=== PATIENT | female | born 1990 | race Caucasian/White ===

== ENCOUNTER 2019-04-10 19:28 | Emergency (ER) | payer BC ==
--- NOTE | 2019-04-10 19:52 | EDM.PDOC ---
ED HPI GENERAL MEDICAL PROBLEM - General Chief Complaint: Lower Extremity Injury/Pain Stated Complaint: PAIN IN LEFT LEG Time Seen by Provider: 04/10/19 19:52 Source of Information: Reports: Patient - History of Present Illness INITIAL COMMENTS - FREE TEXT/NARRATIVE: HISTORY AND PHYSICAL: History of present illness: [Patient presents with pain in the left thigh that appears to be muscular in nature however she is concerned about DVT she has no swelling or redness however d-dimer is positive hence get ultrasound of the lower extremity which was negative patient has no other symptoms such as fever nausea vomiting chills sweats no chest pain shortness breath headache dizziness palpitation no bowel or urine symptoms ] Review of systems: As per history of present illness and below otherwise all systems reviewed and negative. Past medical history: As per history of present illness and as reviewed below otherwise noncontributory. Surgical history: As per history of present illness and as reviewed below otherwise noncontributory. Social history: No reported history of drug or alcohol abuse. Family history: As per history of present illness and as reviewed below otherwise noncontributory. Physical exam: HEENT: Atraumatic, normocephalic, pupils reactive, negative for conjunctival pallor or scleral icterus, mucous membranes moist, throat clear, neck supple, nontender, trachea midline. Lungs: Clear to auscultation, breath sounds equal bilaterally, chest nontender. Heart: S1S2, regular, negative for clicks, rubs, or JVD. Abdomen: Soft, nondistended, nontender. Negative for masses or hepatosplenomegaly. Negative for costovertebral tenderness. Pelvis: Stable nontender. Genitourinary: Deferred. Rectal: Deferred. Extremities: Atraumatic, negative for cords or calf pain. Neurovascular unremarkable. Neuro: Awake, alert, oriented. Cranial nerves II through XII unremarkable. Cerebellum unremarkable. Motor and sensory unremarkable throughout. Exam nonfocal. Diagnostics: [CBC d-dimer Ultrasounld lower extremity Therapeutics: [ rest ice ibuprofen ] Impression: [ muscle spasm ] Definitive disposition and diagnosis as appropriate pending reevaluation and review of above. Left Leg Pain Score (Numeric/FACES): 5 - Related Data Allergies Allergy/AdvReac Type Severity Reaction Status Date / Time No Known Allergies Allergy Verified 04/10/19 19:36 Home Meds: Home Meds . 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: Ectopic , Endometriosis Musculoskeletal History: Reports: Fracture Neurological History: Reports: Seizure, Other (See Below) Other Neuro History: seizure of unknown origin (2007), none since......hx of motion sickness Psychiatric History: Reports: None Endocrine/Metabolic History: Reports: None Hematologic History: Reports: Blood Transfusion(s) Immunologic History: Reports: None Oncologic (Cancer) History: Reports: None Dermatologic History: Reports: None - Past Surgical History Head Surgeries/Procedures: Reports: None HEENT Surgical History: Reports: None Cardiovascular Surgical History: Reports: None Respiratory Surgical History: Reports: None GI Surgical History: Reports: None Female Surgical History: Reports: Endometrial Ablation Endocrine Surgical History: Reports: None Musculoskeletal Surgical History: Reports: ORIF Other Musculoskeletal Surgeries/Procedures:: left ankle Oncologic Surgical History: Reports: None Dermatological Surgical History: Reports: None Social & Family History - Family History Family Medical History: Noncontributory - Tobacco Use Smoking Status *Q: Never Smoker Review of Systems - Review of Systems Review Of Systems: See Below ED EXAM, GENERAL - Physical Exam Exam: See Below Course - Vital Signs Last Recorded V/S: Last Vital Signs Temp 97.7 F 04/10/19 19:37 Pulse 87 04/10/19 19:37 Resp 16 04/10/19 19:37 BP 145/94 H 04/10/19 19:37 Pulse Ox 100 04/10/19 19:37 - Orders/Labs/Meds Labs: Laboratory Tests 04/10/19 04/10/19 Range/Units 19:56 19:56 WBC 9.25 (4.0-11.0) K/uL RBC 4.45 (4.30-5.90) M/uL Hgb 13.4 (12.0-16.0) g/dL Hct 39.7 (36.0-46.0) % MCV 89.2 (80.0-98.0) fL MCH 30.1 (27.0-32.0) pg MCHC 33.8 (31.0-37.0) g/dL RDW Std Deviation 40.6 (28.0-62.0) fl RDW Coeff of Orion 13 (11.0-15.0) % Plt Count 333 (150-400) K/uL MPV 9.30 (7.40-12.00) fL Neut % (Auto) 67.7 (48.0-80.0) % Lymph % (Auto) 22.1 (16.0-40.0) % [place] % (Auto) 7.4 (0.0-15.0) % Eos % (Auto) 2.4 (0.0-7.0) % Baso % (Auto) 0.4 (0.0-1.5) % Neut # (Auto) 6.3 H (1.4-5.7) K/uL Lymph # (Auto) 2.0 (0.6-2.4) K/uL [place] # (Auto) 0.7 (0.0-0.8) K/uL Eos # (Auto) 0.2 (0.0-0.7) K/uL Baso # (Auto) 0.0 (0.0-0.1) K/uL Nucleated RBC % 0.0 /100WBC Nucleated RBCs # 0 K/uL D-Dimer, Quantitative 1.10 H (0.0-0.50) mg/L FEU Departure - Departure Time of Disposition: 21:10 Disposition: Home, Self-Care 01 Condition: Good Clinical Impression: Muscle spasm - Discharge Information Referrals: PCP,None [Primary Care Provider] - Forms: ED Department Discharge Additional Instructions: Rest ice ibuprofen Return if symptoms persist or worsen Follow-up with primary care in 2 weeks sooner as needed [facility] - Primary Care [address] [place] [address] The following information is given to patients seen in the emergency department who are being discharged to home. This information is to outline your options for follow-up care. We provide all patients seen in our emergency department with a follow-up referral. The need for follow-up, as well as the timing and circumstances, are variable depending upon the specifics of your emergency department visit. If you don't have a primary care physician on staff, we will provide you with a referral. We always advise you to contact your personal physician following an emergency department visit to inform them of the circumstance of the visit and for follow-up with them and/or the need for any referrals to a consulting specialist. The emergency department will also refer you to a specialist when appropriate. This referral assures that you have the opportunity for follow-up care with a specialist. All of these measure are taken in an effort to provide you with optimal care, which includes your follow-up. Under all circumstances we always encourage you to contact your private physician who remains a resource for coordinating your care. When calling for follow-up care, please make the office aware that this follow-up is from your recent emergency room visit. If for any reason you are refused follow-up, please contact the [facility] emergency department at and asked to speak to the emergency department charge nurse.
[2019-04-10 20:09] VITALS: BP 145/94; PULSE 87
--- NOTE | 2019-04-10 21:08 | US ---
INDICATION: left leg pain, elevated d-dimer TECHNIQUE: Ultrasound venous duplex left lower extremity. COMPARISON: None. FINDINGS: The left common femoral, superficial femoral, deep femoral, popliteal, posterior tibial, and greater saphenous veins are fully compressible normal waveforms. IMPRESSION: Normal ultrasound of the left lower extremity veins. Dictated by: Alex Lyons MD @ 04/10/2019 21:07:40 (Electronically Signed)
== END 2019-04-10 21:22 | disposition home or self-care (01) ==
LOC: MW.ED 19:28
DX: M62.838 Other muscle spasm (principal)
CPT/HCPCS: 36415; 85025; 85379; 93971-26-LT; 93971-LT; 99284-25

== ENCOUNTER 2019-07-16 14:43 | Emergency (ER) | payer BC ==
[2019-07-16 15:18] VITALS: BP 151/75; PULSE 85
--- NOTE | 2019-07-16 15:39 | EDM.PDOC ---
ED HPI GENERAL MEDICAL PROBLEM - General Chief Complaint: Chest Pain Stated Complaint: CHEST PAIN Time Seen by Provider: 07/16/19 15:13 Source of Information: Reports: Patient History Limitations: Reports: No Limitations - History of Present Illness INITIAL COMMENTS - FREE TEXT/NARRATIVE: HISTORY AND PHYSICAL: History of present illness: Patient is a 29-year-old female who presents to the emergency room today with complaints of epigastric pain. She states she had eaten a bagel with multiple toppings on it and shortly after developed epigastric pain which was similar to heartburn. She has some mild nausea associated with it. Patient denies any fever, chills, headache, change in vision, syncope or near syncope. Denies any neck pain, back pain, shortness of breath or cough. Denies any vomiting, diarrhea, constipation or dysuria. Has not noted any blood in urine or stool. Patient has been eating and drinking appropriately. Patient has low to no risk factors of heart disease. She states she is otherwise healthy. Review of systems: As per history of present illness and below otherwise all systems reviewed and negative. Past medical history: As per history of present illness and as reviewed below otherwise noncontributory. Surgical history: As per history of present illness and as reviewed below otherwise noncontributory. Social history: See social history for further information Family history: As per history of present illness and as reviewed below otherwise noncontributory. Physical exam: General: Well-developed and well-nourished 29-year-old female. Alert and oriented. Nontoxic-appearing and in no acute distress. HEENT: Atraumatic, normocephalic, pupils equal and reactive bilaterally, negative for conjunctival pallor or scleral icterus, mucous membranes moist, TMs normal bilaterally, throat clear, neck supple, nontender, trachea midline. No drooling or trismus noted. No meningeal signs. No hot potato voice noted. Lungs: Clear to auscultation, breath sounds equal bilaterally, chest nontender. Heart: S1S2, regular rate and rhythm without overt murmur Abdomen: Soft, nondistended, nontender. Negative for masses or hepatosplenomegaly. Negative for costovertebral tenderness. Skin: Intact, warm, dry. No lesions or rashes noted. Extremities: Atraumatic, moves all extremities per self without difficulty or deficits, negative for cords or calf pain. Neurovascular unremarkable. Neuro: Awake, alert, oriented. Cranial nerves II through XII unremarkable. Cerebellum unremarkable. Motor and sensory unremarkable throughout. Exam nonfocal. Notes: Diagnostics are unremarkable. Patient felt improvement with a GI cocktail. Supportive care measures were reviewed and discussed. Voices understanding and is agreeable to plan of care. Denies any further questions or concerns at this time. Diagnostics: CBC, BMP, EKG, CXR Therapeutics: GI cocktail Prescription: None Impression: Epigastric Pain Plan: 1. Today's lab work, EKG, and chest x-ray are normal. Bellflower diet over the next 24-48 hours; advance as tolerated. May want to start a once daily Pepcid or Prilosec to help with symptoms. 2. Tylenol and/or ibuprofen as needed for pain management. 3. Follow-up with primary care as we discussed. Return to the ED as needed and as discussed. Definitive disposition and diagnosis as appropriate pending reevaluation and review of above. Chest Pain Score (Numeric/FACES): 4 - Related Data Allergies Allergy/AdvReac Type Severity Reaction Status Date / Time No Known Allergies Allergy Verified 07/16/19 15:18 Home Meds: Home Meds . 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 , Endometriosis Musculoskeletal History: Reports: Fracture Neurological History: Reports: Seizure, Other (See Below) Other Neuro History: seizure of unknown origin (2007), none since......hx of motion sickness Psychiatric History: Reports: None Endocrine/Metabolic History: Reports: None Hematologic History: Reports: Blood Transfusion(s) Immunologic History: Reports: None Oncologic (Cancer) History: Reports: None Dermatologic History: Reports: None - Past Surgical History Head Surgeries/Procedures: Reports: None HEENT Surgical History: Reports: None Cardiovascular Surgical History: Reports: None Respiratory Surgical History: Reports: None GI Surgical History: Reports: None Female Surgical History: Reports: Endometrial Ablation Endocrine Surgical History: Reports: None Neurological Surgical History: Reports: None Musculoskeletal Surgical History: Reports: ORIF Other Musculoskeletal Surgeries/Procedures:: left ankle Oncologic Surgical History: Reports: None Dermatological Surgical History: Reports: None Social & Family History - Family History Family Medical History: Noncontributory - Tobacco Use Smoking Status *Q: Current Every Day Smoker Years of Tobacco use: 2 Packs/Tins Daily: 1 - Caffeine Use Caffeine Use: Reports: None - Recreational Drug Use Recreational Drug Use: No ED ROS GENERAL - Review of Systems Review Of Systems: Comprehensive ROS is negative, except as noted in HPI. ED EXAM, GENERAL - Physical Exam Exam: See Below (See dictation) Course - Vital Signs Last Recorded V/S: Last Vital Signs Temp 97.9 F 07/16/19 15:10 Pulse 85 07/16/19 15:10 Resp 18 07/16/19 15:10 BP 151/75 H 07/16/19 15:10 Pulse Ox 97 07/16/19 15:10 - Orders/Labs/Meds Orders: Active Orders 24 hr Category Date Time Status EKG Documentation Completion [RC] STAT Care 07/16/19 14:44 Active Labs: Laboratory Tests 07/16/19 07/16/19 Range/Units 15:49 15:49 WBC 9.03 (4.0-11.0) K/uL RBC 4.47 (4.30-5.90) M/uL Hgb 13.5 (12.0-16.0) g/dL Hct 40.0 (36.0-46.0) % MCV 89.5 (80.0-98.0) fL MCH 30.2 (27.0-32.0) pg MCHC 33.8 (31.0-37.0) g/dL RDW Std Deviation 41.1 (28.0-62.0) fl RDW Coeff of Orion 13 (11.0-15.0) % Plt Count 338 (150-400) K/uL MPV 9.10 (7.40-12.00) fL Neut % (Auto) 72.3 (48.0-80.0) % Lymph % (Auto) 16.8 (16.0-40.0) % [place] % (Auto) 8.5 (0.0-15.0) % Eos % (Auto) 1.8 (0.0-7.0) % Baso % (Auto) 0.6 (0.0-1.5) % Neut # (Auto) 6.5 H (1.4-5.7) K/uL Lymph # (Auto) 1.5 (0.6-2.4) K/uL [place] # (Auto) 0.8 (0.0-0.8) K/uL Eos # (Auto) 0.2 (0.0-0.7) K/uL Baso # (Auto) 0.1 (0.0-0.1) K/uL Nucleated RBC % 0.0 /100WBC Nucleated RBCs # 0 K/uL Sodium 139 (136-145) mmol/L Potassium 3.8 (3.5-5.1) mmol/L Chloride 102 (98-107) mmol/L Carbon Dioxide 25.7 (21.0-32.0) mmol/L BUN 14 (7.0-18.0) mg/dL Creatinine 1.0 (0.6-1.0) mg/dL Est Cr Clr Drug Dosing 64.47 mL/min Estimated GFR (MDRD) > 60.0 ml/min Glucose 98 (74-106) mg/dL Calcium 8.6 (8.5-10.1) mg/dL Meds: Medications Discontinued Medications Generic Name Dose Route Start Last Admin Trade Name Freq PRN Reason Stop Dose Admin Al Hydroxide/Mg Hydroxide 15 0 ml 07/16/19 15:44 ml/ Metoclopramide HCl 5 mg/ PO 07/16/19 15:45 Lidocaine HCl 5 ml ONETIME ONE Departure - Departure Time of Disposition: 16:01 Disposition: Home, Self-Care 01 Clinical Impression: Epigastric pain Instructions: Gastroesophageal Reflux Disease, Adult, [id number] Referrals: PCP,None [Primary Care Provider] - Forms: ED Department Discharge Additional Instructions: The following information is given to patients seen in the emergency department who are being discharged to home. This information is to outline your options for follow-up care. We provide all patients seen in our emergency department with a follow-up referral. The need for follow-up, as well as the timing and circumstances, are variable depending upon the specifics of your emergency department visit. If you don't have a primary care physician on staff, we will provide you with a referral. We always advise you to contact your personal physician following an emergency department visit to inform them of the circumstance of the visit and for follow-up with them and/or the need for any referrals to a consulting specialist. The emergency department will also refer you to a specialist when appropriate. This referral assures that you have the opportunity for follow-up care with a specialist. All of these measure are taken in an effort to provide you with optimal care, which includes your follow-up. Under all circumstances we always encourage you to contact your private physician who remains a resource for coordinating your care. When calling for follow-up care, please make the office aware that this follow-up is from your recent emergency room visit. If for any reason you are refused follow-up, please contact the [facility] Emergency Department at and asked to speak to the emergency department charge nurse. [facility] Primary Care [address] [place] [address] [place] [address] 1. Today's lab work, EKG, and chest x-ray are normal. [place] diet over the next 24-48 hours; advance as tolerated. May want to start a once daily Pepcid or Prilosec to help with symptoms. 2. Tylenol and/or ibuprofen as needed for pain management. 3. Follow-up with primary care as we discussed. Return to the ED as needed and as discussed. Sepsis Event Note - Evaluation Sepsis Screening Result: No Definite Risk - Focused Exam Vital Signs: Vital Signs Temp Pulse Resp BP Pulse Ox 07/16/19 15:10 97.9 F 85 18 151/75 H 97 Date Exam was Performed: 07/16/19 Time Exam was Performed: 16:23 - My Orders Last 24 Hours: My Active Orders 07/16/19 14:44 EKG Documentation Completion [RC] STAT - Assessment/Plan Last 24 Hours: My Active Orders 07/16/19 14:44 EKG Documentation Completion [RC] STAT
[2019-07-16] MEDS ORDERED: Alum Hydrox/Mag Hydrox/Simeth 15 ML, Metoclopramide 5 MG, Lidocaine 2% 5 ML PO ONE ×3 (15:44)
--- NOTE | 2019-07-16 15:54 | CR ---
Chest: 2 views of the chest were obtained. Comparison: No previous chest x-ray. Heart size and mediastinum are normal. Lungs are clear with no acute parenchymal change. Bony structures are unremarkable. Impression: 1. Nothing acute is seen on 2 view chest x-ray. Diagnostic code #1 This report was dictated in [place] Standard Time
[2019-07-16 16:08] LABS: BLOOD UREA NITROGEN,BUN 14 mg/dL (7.0-18.0); CARBON DIOXIDE,CO2 25.7 mmol/L (21.0-32.0); CHLORIDE,CL 102 mmol/L (98-107); GLUCOSE RANDOM 98 mg/dL (74-106); POTASSIUM,K 3.8 mmol/L (3.5-5.1); SODIUM,NA 139 mmol/L (136-145)
== END 2019-07-16 16:29 | disposition home or self-care (01) ==
LOC: MW.ED 14:43
DX: R10.13 Epigastric pain (principal); F17.210 Nicotine dependence, cigarettes, uncomplicated
CPT/HCPCS: 36415; 71046; 71046-26; 80048; 85025; 93005; 99283; 99284-25

== ENCOUNTER 2020-05-22 05:11 | Inpatient (IN) | payer BC ==
[2020-05-22] MEDS ORDERED: Lidocaine 1% 50 ML MDV INJECT PRN (05:19)
[2020-05-22] MEDS ORDERED: Water For Irrigation,Sterile 1,000 ML Container IRR PRN (05:19)
[2020-05-22] MEDS ORDERED: Citric Acid/Sodium Citrate Solution 30 ML Cup PO ONE (05:19)
[2020-05-22] MEDS ORDERED: Butorphanol 1 MG/ML SDV IVPUSH PRN (05:19)
[2020-05-22] MEDS ORDERED: Ondansetron 4 MG/2 ML SDV IVPUSH PRN ×2 (05:19→09:15)
[2020-05-22] MEDS ORDERED: Misoprostol 200 MCG Tab PO PRN (05:19)
[2020-05-22] MEDS ORDERED: Nalbuphine 10 MG/1 ML Vial IVPUSH PRN (05:19)
[2020-05-22] MEDS ORDERED: Sodium Chloride 0.9% 10 ML SDV IV PRN (05:19)
[2020-05-22] MEDS ORDERED: Carboprost Tromethamine 250 MCG/1 ML Amp IM PRN (05:19)
[2020-05-22] MEDS ORDERED: ceFAZolin 2 GM in Premix Bag 1 BAG IV ONE (05:19)
[2020-05-22] MEDS ORDERED: Methylergonovine 0.2 MG/1 ML Amp IM PRN (05:19)
[2020-05-22] MEDS ORDERED: Tranexamic Acid 1,000 MG in Sodium Chloride 0.9% 100 ML IV PRN ×2 (05:19→09:15)
[2020-05-22] MEDS ORDERED: Oxytocin/0.9 % Sodium Chloride 30 UNIT/500 ML BAG IV SCH ×2 (05:30)
[2020-05-22] MEDS ORDERED: Lactated Ringers 1,000 ML IV SCH ×2 (05:30)
--- NOTE | 2020-05-22 07:32 | PCM.PREANE ---
Preanesthetic Assessment - Anesthesia/Transfusion/Family Hx Type of Anesthesia Reaction: Excessive Nausea/Vomiting Transfusion History: Prior Transfusion Without Reaction - Review of Systems General: No Symptoms Pulmonary: No Symptoms Cardiovascular: No Symptoms Gastrointestinal: No Symptoms Neurological: No Symptoms Other: Reports: None - Physical Assessment NPO Status Date: 05/21/20 NPO Status Time: 20:30 Vital Signs: reviewed and documented on intraoperative anesthesia record Height: 1.57 m Weight: 78.471 kg ASA Class: 2 Mental Status: Alert & Oriented x3 Airway Class: Mallampati = 2 Dentition: Reports: Normal Dentition Thyro-Mental Finger Breadths: 3 Mouth Opening Finger Breadths: 3 ROM/Head Extension: Full Lungs: Clear to Auscultation, Normal Respiratory Effort Cardiovascular: Regular Rate, Regular Rhythm - Lab Values: Laboratory Last Values WBC 15.49 K/uL (4.0-11.0) H 05/22/20 05:21 RBC 4.06 M/uL (4.30-5.90) L 05/22/20 05:21 Hgb 11.8 g/dL (12.0-16.0) L 05/22/20 05:21 Hct 36.0 % (36.0-46.0) 05/22/20 05:21 MCV 88.7 fL (80.0-98.0) 05/22/20 05:21 MCH 29.1 pg (27.0-32.0) 05/22/20 05:21 MCHC 32.8 g/dL (31.0-37.0) 05/22/20 05:21 RDW Std Deviation 44.4 fl (28.0-62.0) 05/22/20 05:21 RDW Coeff of Orion 14 % (11.0-15.0) 05/22/20 05:21 Plt Count 384 K/uL (150-400) 05/22/20 05:21 MPV 10.50 fL (7.40-12.00) 05/22/20 05:21 Nucleated RBC % 0.0 /100WBC 05/22/20 05:21 Nucleated RBCs # 0 K/uL 05/22/20 05:21 SARS-CoV-2 RNA (MARILYNN) NEGATIVE (NEGATIVE) 05/22/20 05:29 Blood Type A POSITIVE 05/22/20 05:21 Antibody Screen NEGATIVE 05/22/20 05:21 - Allergies Allergies/Adverse Reactions: Allergies Allergy/AdvReac Type Severity Reaction Status Date / Time No Known Allergies Allergy Verified 07/16/19 15:18 - Acknowledgements Anesthesia Type Planned: Spinal (The patient understands and accepts the risks and benefits with spinal anesthesia including failed spinal requiring conversion to general anesthetic. All questions answered. Anesthesia consent signed. 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 , Endometriosis, (39 weeks iup low amniotic fluid) Musculoskeletal History: Reports: Fracture Neurological History: Reports: Seizure, Other (See Below) Other Neuro History: seizure of unknown origin (2007), none since......hx of motion sickness Psychiatric History: Reports: None Endocrine/Metabolic History: Reports: Obesity/BMI 30+ Hematologic History: Reports: Blood Transfusion(s) Immunologic History: Reports: None Oncologic (Cancer) History: Reports: None Dermatologic History: Reports: None - Infectious Disease History Infectious Disease History: Reports: Chicken Pox - Past Surgical History Head Surgeries/Procedures: Reports: None HEENT Surgical History: Reports: Oral Surgery Cardiovascular Surgical History: Reports: None Respiratory Surgical History: Reports: None GI Surgical History: Reports: None Female Surgical History: Reports: Endometrial Ablation, Other (See Below) (diagnostic laparoscopy) Other Female Surgeries/Procedures: states had a laparotomy due to an ectopic 2009 Endocrine Surgical History: Reports: None Neurological Surgical History: Reports: None Musculoskeletal Surgical History: Reports: ORIF Other Musculoskeletal Surgeries/Procedures:: left ankle Oncologic Surgical History: Reports: None Dermatological Surgical History: Reports: None - SUBSTANCE USE Tobacco Use Status *Q: Former Tobacco User (quit 2005) Second Hand Smoke Exposure: No Days Per Week of Alcohol Use: 0 (during ) Recreational Drug Use History: No - HOME MEDS Home Medications: Home Meds Cholecalciferol (Vitamin D3) [Vitamin D3] 1 cap PO DAILY 04/06/20 [History] Fish Oil/Points-3 Fatty Acids [Fish Oil 1,000 MG] 1 cap PO DAILY 04/06/20 [History] Iron 18 mg PO BID 04/06/20 [History] Magnesium 1 tab PO DAILY 04/06/20 [History] Pnv No.95/Ferrous Fum/Folic AC [ Vitamin Tablet] 1 each PO DAILY 04/06/20 [History] Omeprazole Magnesium [Prilosec Otc] 1 tab PO DAILY 05/16/20 [History] - CURRENT (IN HOUSE) MEDS Current Meds: Current Medications Butorphanol Tartrate (Stadol) 1 mg IVPUSH Q1H PRN PRN Reason: Pain Carboprost Tromethamine (Hemabate Ds) 250 mcg IM ASDIRECTED PRN PRN Reason: Post Hemorrhage Oxytocin/Sodium Chloride (Oxytocin 30 Unit/500 Ml-Ns) 30 unit in 500 mls @ 250 mls/hr IV TITRATE [facility] Lactated Ringer's (Ringers, Lactated) 1,000 mls @ 150 mls/hr IV ASDIRECTED [facility] Last Admin: 05/22/20 07:28 Dose: 150 mls/hr Documented by: Oxytocin/Sodium Chloride (Oxytocin 30 Unit/500 Ml-Ns) 30 unit in 500 mls @ 999 mls/hr IV TITRATE [facility] Tranexamic Acid 1,000 mg/ (Sodium Chloride) 110 mls @ 660 mls/hr IV ONETIME PRN PRN Reason: Bleeding Lactated Ringer's (Ringers, Lactated) 1,000 mls @ 500 mls/hr IV BOLUS [facility] Lidocaine HCl (Xylocaine 1%) 50 ml INJECT ONETIME PRN PRN Reason: Laceration repair Methylergonovine Maleate (Methergine) 0.2 mg IM ASDIRECTED PRN PRN Reason: Post Hemorrhage Misoprostol (Cytotec) 200 mcg PO ONETIME PRN PRN Reason: Post Hemorrhage Nalbuphine HCl (Nubain) 10 mg IVPUSH Q1H PRN PRN Reason: Pain (severe 7-10) Ondansetron HCl (Zofran) 4 mg IVPUSH Q4H PRN PRN Reason: Nausea/Vomiting Sodium Chloride (Normal Saline) 10 ml IV ASDIRECTED PRN PRN Reason: IV Use Sterile Water (Sterile Water For Irrigation) 1,000 ml IRR ASDIRECTED PRN PRN Reason: delivery Discontinued Medications Citric Acid/Sodium Citrate (Bicitra Solution) 30 ml PO ONETIME ONE Stop: 05/22/20 05:20 Cefazolin Sodium/Dextrose 2 gm (/ Premix) 50 mls @ 100 mls/hr IV ONETIME ONE Stop: 05/22/20 05:48
[2020-05-22] MEDS ORDERED: ceFAZolin/Dextrose,Iso-Osmotic 2 GM/50 ML Duplex Bag IV ONE (07:33)
[2020-05-22] MEDS ORDERED: Morphine PF 10 MG/10 ML SDV ONE (07:33)
[2020-05-22] MEDS ORDERED: ePHEDrine 50 MG/ML SDV ONE (08:22)
[2020-05-22] MEDS ORDERED: Ondansetron 4 MG/2 ML SDV ONE ×2 (08:30→08:46)
[2020-05-22] MEDS ORDERED: Oxytocin 10 Units/1 ML SDV ONE (08:38)
[2020-05-22] MEDS ORDERED: Dexamethasone 4 MG/ML 5 ML MDV ONE (08:46)
[2020-05-22] MEDS ORDERED: Scopolamine 1.5 MG Transdermal Patch ONE (08:47)
[2020-05-22] MEDS ORDERED: Propofol 200 MG/20 ML SDV ONE (08:53)
[2020-05-22] MEDS ORDERED: Octyl 2-Cyanoacrylate 1 Tube ONE (08:53)
[2020-05-22] MEDS ORDERED: Acetaminophen/oxyCODONE 325-5 MG Tab PO PRN ×3 (09:00→09:15)
[2020-05-22] MEDS ORDERED: Acetaminophen/HYDROcodone 325-5 MG Tab PO PRN (09:00)
[2020-05-22] MEDS ORDERED: Naloxone 0.4 MG/ML Syringe IVPUSH PRN (09:00)
--- NOTE | 2020-05-22 09:04 | PCM.SN.2 ---
- Free Text/Narrative Note: Patient in sitting position. Spinal done with sterile technique. Back prepped with chlorhexidine. sterile draped used. 1% lidocaine 3 ml for skin infiltration. 25 gauge pencan needle +csf, no heme, no paresthesias. 1.4 ml of hyperbaric bupivacaine 0.75% and 0.25 duramorph given at 0809. patient tolerated procedure well, and was able to communicate throughout. one attempt.
[2020-05-22] MEDS ORDERED: Ketorolac 30 MG/ML SDV ONE (09:05)
--- NOTE | 2020-05-22 09:14 | PCM.OPNOTE ---
- General Post-Op/Procedure Note Date of Surgery/Procedure: 05/22/20 Operative Procedure(s): primary low transvserse Findings: liveborn female complete breech presentation. Normal pelvis Pre Op Diagnosis: 39 weeks breech presentation Post-Op Diagnosis: Same Anesthesia Technique: Spinal Primary Surgeon: Jennifer Mendez Anesthesia Provider: Elise Marino Pathology: none EBL in mLs: 300 Complications: None Known Condition: Good
[2020-05-22] MEDS ORDERED: Oxytocin/Lactated Ringers 30 UNIT/500 ML BAG IV SCH (09:15)
[2020-05-22] MEDS ORDERED: diphenhydrAMINE 50 MG/ML SDV IVPUSH PRN (09:15)
[2020-05-22] MEDS ORDERED: Ibuprofen 800 MG Tab PO PRN (09:15)
[2020-05-22] MEDS ORDERED: Lanolin 100% Cream 7 GM Tube TOP PRN (09:15)
[2020-05-22] MEDS ORDERED: Bisacodyl 10 MG Supp RECTAL PRN (09:15)
[2020-05-22] MEDS ORDERED: Oxytocin 10 Units/1 ML SDV IM PRN (09:15)
[2020-05-22] MEDS: Lactated Ringers 1,000 ML IV SCH ×2 (09:24→18:59)
--- NOTE | 2020-05-22 10:39 | PCM.POSTAN ---
POST ANESTHESIA ASSESSMENT - MENTAL STATUS Mental Status: Alert, Oriented - RESPIRATORY Respiratory Status: Respiratory Rate WNL, Airway Patent, O2 Saturation Stable - CARDIOVASCULAR CV Status: Pulse Rate WNL, Blood Pressure Stable - GASTROINTESTINAL GI Status: No Symptoms - PAIN Pain Score: 0 - POST OP HYDRATION Hydration Status: Adequate & Stable - OBSERVATIONS Free Text/Narrative:: Nausea is controlled. She has no complaints at this time. The patient tolerated the procedure well. There were no apparent anesthetic complications at this time. Discharge to floor per criteria.
--- NOTE | 2020-05-22 12:40 | OR ---
SURGEON: Jennifer Mendez M.D. DATE OF PROCEDURE: 05/22/2020 PREOPERATIVE DIAGNOSES: A 39-week gestation, breech presentation, IVF . POSTOPERATIVE DIAGNOSES: A 39-week gestation, breech presentation, IVF . PROCEDURE: Primary low-transverse section. PRIMARY SURGEON: Jennifer Mendez M.D. ANESTHESIA: Spinal. ESTIMATED BLOOD LOSS: 300 mL. FINDINGS: Liveborn female, scores 7 and 9, weighing 3040 g. Normal-appearing uterus, tubes, and ovaries. COMPLICATIONS: None known. DISPOSITION: Mother and baby are in LDR in good condition. BRIEF HISTORY: This is a 30-year-old female, G4, P0, presents at 39 weeks' gestation for primary delivery. Due to breech presentation, we had discussed external cephalic version. However, the amniotic fluid level remained between 5 and 8 during the time when version would be appropriate, and after extensive discussion with Leda and her , decision was made to proceed with a primary delivery if spontaneous cephalic presentation did not occur. I did confirm breech presentation prior to proceeding with the delivery. Risks of were discussed including bleeding; infection; injury to bowel, bladder, blood vessels, or other organs; risk of thromboembolic event; risk of anesthesia. Understanding all these risks, she does desire to proceed. DESCRIPTION OF PROCEDURE: With the patient in left tilt position, under adequate spinal analgesia, the abdomen was prepped with chlorhexidine and draped in the usual fashion for abdominal surgery. SCDs were in place. Rocha catheter had been placed. An appropriate time-out was held, and she had received 2 g of Ancef IV. After documentation of adequate analgesia, the prior cicatrix was excised with a scalpel, and the incision was carried through the subcutaneous tissue to the fascia, which was scored transversely in the midline. The fascial incision was extended laterally using curved Turner scissors. The fascia was elevated from the underlying rectus muscles using sharp and blunt dissection. The rectus muscles were in the midline. A finger was placed into the peritoneal cavity. There were no adhesions to the anterior abdominal wall. The incision was extended cephalad and caudad with sharp and blunt dissection, and the Marshall O C- section retractor was placed. The visceral peritoneum over the lower uterine segment was incised to develop an adequate bladder flap. A transverse curvilinear incision was made over the lower uterine segment using the scalpel. A finger was used to enter the amniotic cavity. Clear fluid was noted. The breech was delivered sacrum anterior with subsequent delivery of the 's shoulders and head without any difficulty or maneuvers. The infant was bulb suctioned by nose and mouth. After 1 minute, the cord was doubly clamped and cut. The infant was handed to Dr. Bustillo who was in attendance at delivery. The was a liveborn female, scores 7 and 9, weighing 3040 g. Cord blood was collected for cord ABGs as well as routine cord blood sampling. Pitocin was initiated after delivery of the infant to assist with delivery of the placenta, which was delivered by manual extraction. The uterus was cleaned with a dry laparotomy tape. The cervix was opened with ring forceps. The uterine incision was closed with a running lock suture of 0 Polysorb followed by an imbricating layer of 0 Polysorb. Despite Pitocin, the uterus remained quite boggy. Therefore, Methergine 0.2 mg IM was given, and after this, the uterus firmed up. The uterine incision was hemostatic. The Marshall retractor was removed, and the uterus was replaced into the abdominal cavity. The rectus muscle and peritoneum were loosely approximated in the midline after confirmation of complete hemostasis of the uterine incision, and the posterior aspect of the fascia was inspected, and areas of bleeding that were noted were cauterized. The fascial incision was closed with a running suture of 0 Polysorb. The skin was closed with a running subcuticular suture of 3-0 Monocryl followed by Dermabond. Final sponge, needle, and instrument counts were reported as correct. There were no known complications. The patient was transferred to Recovery in good condition. THERESA THORPE /[id number]
[2020-05-22] MEDS: Ketorolac 30 MG/ML SDV IVPUSH SCH ×3 (16:16→21:56)
[2020-05-22] MEDS: diphenhydrAMINE 50 MG/ML SDV IVPUSH PRN (21:56)
[2020-05-22] MEDS: Docusate Sodium 100 MG Cap PO SCH (21:56)
[2020-05-23] MEDS: Ketorolac 30 MG/ML SDV IVPUSH SCH ×2 (04:19→09:45)
[2020-05-23] MEDS: diphenhydrAMINE 50 MG/ML SDV IVPUSH PRN (04:20)
--- NOTE | 2020-05-23 06:50 | PCM.PNPP ---
- General Info Date of Service: 05/23/20 Subjective Update: 30yo P1 s/p primary for breech , Normal lochia Functional Status: Reports: Pain Controlled, Tolerating Diet, Ambulating, Urinating - Review of Systems General: Reports: No Symptoms HEENT: Reports: No Symptoms Pulmonary: Reports: No Symptoms Cardiovascular: Reports: No Symptoms Gastrointestinal: Reports: No Symptoms Genitourinary: Reports: No Symptoms Musculoskeletal: Reports: No Symptoms Skin: Reports: No Symptoms Neurological: Reports: No Symptoms Psychiatric: Reports: No Symptoms - General Info Date of Service: 05/23/20 - Patient Data Vital Signs - Most Recent: Last Vital Signs Temp 36.8 C 05/23/20 04:00 Pulse 70 05/23/20 05:00 Resp 16 05/23/20 05:00 BP 111/59 L 05/23/20 04:00 Pulse Ox 99 05/23/20 05:00 Weight - Most Recent: 78.471 kg I&O - Last 24 Hours: Intake & Output 05/22/20 05/22/20 05/23/20 14:59 22:59 06:59 Intake Total 1228 Output Total 30 600 2155 Balance -30 628 -2155 Lab Results - Last 24 Hours: Laboratory Results - last 24 hr 05/22/20 05/22/20 05/22/20 Range/Units 05:21 05:29 08:37 Cord ABG pH 7.229 (7.18-7.38) Cord ABG Base Excess -5 (-10--2) Cord VBG pH 7.296 (7.25-7.45) Cord VBG Base Excess -5 (-10--2) SARS-CoV-2 RNA (MARILYNN) NEGATIVE (NEGATIVE) Blood Type A POSITIVE Antibody Screen NEGATIVE Med Orders - Current: Current Medications Hydrocodone Bitart/Acetaminophen ([place] 325-5 Mg) 2 tab PO Q6H PRN PRN Reason: Pain (moderate 4-6) Bisacodyl (Dulcolax) 10 mg RECTAL ONETIME PRN PRN Reason: Constipation Diphenhydramine HCl (Benadryl) 25 mg IVPUSH Q4H PRN PRN Reason: Itching Stop: 05/23/20 09:01 Last Admin: 05/23/20 04:20 Dose: 25 mg Documented by: Diphenhydramine HCl (Benadryl) 25 mg IVPUSH Q6H PRN PRN Reason: Itching or Nausea Docusate Sodium (Colace) 100 mg PO BID [facility] Last Admin: 05/22/20 21:56 Dose: 100 mg Documented by: Emollient Ointment (Lansinoh Hpa) 0 gm TOP ASDIRECTED PRN PRN Reason: Sore Nipples Lactated Ringer's (Ringers, Lactated) 1,000 mls @ 125 mls/hr IV ASDIRECTED [facility] Last Admin: 05/22/20 18:59 Dose: 125 mls/hr Documented by: Oxytocin/Lactated Ringer's (Pitocin In Lr 30 Units/500 Ml) 30 unit in 500 mls @ 999 mls/hr IV TITRATE [facility]; Protocol Tranexamic Acid 1,000 mg/ (Sodium Chloride) 110 mls @ 660 mls/hr IV ONETIME PRN PRN Reason: Bleeding Ibuprofen (Motrin) 800 mg PO Q8H PRN PRN Reason: mild pain or fever Ketorolac Tromethamine (Toradol) 30 mg IVPUSH Q6H [facility] Stop: 05/23/20 09:16 Last Admin: 05/23/20 04:19 Dose: 30 mg Documented by: Naloxone HCl (Narcan) 0.1 mg IVPUSH ONETIME PRN PRN Reason: Respiratory Depression Stop: 05/23/20 09:01 Ondansetron HCl (Zofran) 4 mg IVPUSH Q4H PRN PRN Reason: Nausea/Vomiting Last Admin: 05/22/20 12:58 Dose: 4 mg Documented by: Oxycodone/Acetaminophen (Percocet 325-5 Mg) 1 tab PO ONETIME PRN PRN Reason: Pain (moderate 4-6) Oxycodone/Acetaminophen (Percocet 325-5 Mg) 1 tab PO Q4H PRN PRN Reason: Pain (moderate 4-6) Oxycodone/Acetaminophen (Percocet 325-5 Mg) 2 tab PO Q4H PRN PRN Reason: Pain (moderate 4-6) Oxytocin (Pitocin) 10 unit IM ASDIRECTED PRN PRN Reason: Excessive Vaginal Bleeding Discontinued Medications Butorphanol Tartrate (Stadol) 1 mg IVPUSH Q1H PRN PRN Reason: Pain Carboprost Tromethamine (Hemabate Ds) 250 mcg IM ASDIRECTED PRN PRN Reason: Post Hemorrhage Cefazolin Sodium/Dextrose (Ancef) Confirm Administered Dose 2 gm IV .STK-MED ONE Stop: 05/22/20 07:34 Citric Acid/Sodium Citrate (Bicitra Solution) 30 ml PO ONETIME ONE Stop: 05/22/20 05:20 Dexamethasone (Dexamethasone) Confirm Administered Dose 20 mg .ROUTE .STK-MED ONE Stop: 05/22/20 08:47 Ephedrine Sulfate (Ephedrine Sulfate) Confirm Administered Dose 50 mg .ROUTE .STK-MED ONE Stop: 05/22/20 08:23 Oxytocin/Sodium Chloride (Oxytocin 30 Unit/500 Ml-Ns) 30 unit in 500 mls @ 250 mls/hr IV TITRATE DALILA Lactated Ringer's (Ringers, Lactated) 1,000 mls @ 150 mls/hr IV ASDIRECTED DALILA Last Admin: 05/22/20 07:28 Dose: 150 mls/hr Documented by: Oxytocin/Sodium Chloride (Oxytocin 30 Unit/500 Ml-Ns) 30 unit in 500 mls @ 999 mls/hr IV TITRATE DALILA Tranexamic Acid 1,000 mg/ (Sodium Chloride) 110 mls @ 660 mls/hr IV ONETIME PRN PRN Reason: Bleeding Cefazolin Sodium/Dextrose 2 gm (/ Premix) 50 mls @ 100 mls/hr IV ONETIME ONE Stop: 05/22/20 05:48 Lactated Ringer's (Ringers, Lactated) 1,000 mls @ 500 mls/hr IV BOLUS DALILA Ketorolac Tromethamine (Toradol) Confirm Administered Dose 30 mg .ROUTE .STK-MED ONE Stop: 05/22/20 09:06 Lidocaine HCl (Xylocaine 1%) 50 ml INJECT ONETIME PRN PRN Reason: Laceration repair Methylergonovine Maleate (Methergine) 0.2 mg IM ASDIRECTED PRN PRN Reason: Post Hemorrhage Misoprostol (Cytotec) 200 mcg PO ONETIME PRN PRN Reason: Post Hemorrhage Morphine Sulfate (Duramorph Pf) Confirm Administered Dose 10 mg .ROUTE .STK-MED ONE Stop: 05/22/20 07:34 Nalbuphine HCl (Nubain) 10 mg IVPUSH Q1H PRN PRN Reason: Pain (severe 7-10) Octyl Cyanoacrylate (Dermabond Advance) Confirm Administered Dose 1 applic .ROUTE .STK-MED ONE Stop: 05/22/20 08:54 Ondansetron HCl (Zofran) 4 mg IVPUSH Q4H PRN PRN Reason: Nausea/Vomiting Ondansetron HCl (Zofran) Confirm Administered Dose 4 mg .ROUTE .STK-MED ONE Stop: 05/22/20 08:31 Ondansetron HCl (Zofran) Confirm Administered Dose 4 mg .ROUTE .STK-MED ONE Stop: 05/22/20 08:47 Oxytocin (Pitocin) Confirm Administered Dose 30 unit .ROUTE .STK-MED ONE Stop: 05/22/20 08:39 Propofol (Diprivan 20 Ml) Confirm Administered Dose 200 mg .ROUTE .STK-MED ONE Stop: 05/22/20 08:54 Scopolamine (Transderm-Scop) Confirm Administered Dose 1.5 mg .ROUTE .STK-MED ONE Stop: 05/22/20 08:48 Sodium Chloride (Normal Saline) 10 ml IV ASDIRECTED PRN PRN Reason: IV Use Sterile Water (Sterile Water For Irrigation) 1,000 ml IRR ASDIRECTED PRN PRN Reason: delivery - Infant Interaction Support Person: - Recovery Exam Fundal Tone: Firm Fundal Level: 1 Fingerbreadths Below Umbilicus Fundal Placement: Midline Lochia Amount: Scant Lochia Color: Rubra/Red Perineum Description: Intact, Minimal Bruising/Swelling Episiotomy/Laceration: None Bladder Status: Indwelling Catheter in Place Urinary Elimination: Not Voiding, Other (see below) Other Urinary Elimination, : Rocha removed at 0330 - Exam General: Alert, Oriented HEENT: Pupils Equal Neck: Supple Lungs: Clear to Auscultation Cardiovascular: Regular Rate, Regular Rhythm GI/Abdominal Exam: Normal Bowel Sounds Extremities: Normal Inspection Wound/Incisions: Healing Well Neurological: No New Focal Deficit Psy/Mental Status: Alert - Problem List & Annotations (1) delivery delivered SNOMED Code(s): 274664437 Code(s): O82 - ENCOUNTER FOR DELIVERY WITHOUT INDICATION Status: Acute Current Visit: Yes - Problem List Review Problem List Initiated/Reviewed/Updated: Yes - Assessment Assessment:: 30 yo P1 s/p primary POD1 Normal lochia Pain control Want to go home feels well Josefina out - Plan Plan:: Routine Pain control as needed Discharge home today as per patient's request
--- NOTE | 2020-05-23 07:09 | PCM48HPAN ---
Post Anesthesia Note - EVALUATION WITHIN 48HRS OF ANESTHETIC Vital Signs in Normal Range: Yes Patient Participated in Evaluation: Yes Respiratory Function Stable: Yes Airway Patent: Yes Cardiovascular Function Stable: Yes Hydration Status Stable: Yes Pain Control Satisfactory: Yes Nausea and Vomiting Control Satisfactory: Yes Mental Status Recovered: Yes Vital Signs: Last Vital Signs Temp 36.8 C 05/23/20 04:00 Pulse 70 05/23/20 05:00 Resp 16 05/23/20 05:00 BP 111/59 L 05/23/20 04:00 Pulse Ox 99 05/23/20 05:00
[2020-05-23] MEDS: Docusate Sodium 100 MG Cap PO SCH (09:44)
[2020-05-23 12:10] VITALS: BP 114/62; PULSE 70
--- NOTE | 2020-05-23 12:36 | PCM.SN.2 ---
- Free Text/Narrative Note: Dr. Matamoros contacted me regarding patient. Patient was given a prescription for Percocet 5-325 status post surgery, however, due to holiday pharmacy is closed. I precribed the patient Percocet 5-325 10 Tablets per request of physician through [facility]
== END 2020-05-23 14:22 | disposition home or self-care (01) | DRG 540 ==
LOC: MW.OB 05:11
PROVIDERS: ADMIT Obstetrics & Gynecology; ATTEND Obstetrics & Gynecology
PROC: 10D00Z1 Extraction of Products of Conception, Low, Open Approach (ICD-10-PCS; principal; 2020-05-22)
DX: O32.1XX0 Maternal care for breech presentation, not applicable or unspecified (principal); Z3A.39 39 weeks gestation of pregnancy; Z37.0 Single live birth; Z20.828 Contact with and (suspected) exposure to other viral communicable diseases
CPT/HCPCS: 01961; 36415; 51702; 59025; 82803; 85014; 85018; 85027; 86592; 86850; 86900; 86901; A9270-GY; J0690; J1100; J1200; J1885; J2270; J2405; J2590; J2704; J7120; U0002

== ENCOUNTER 2022-01-07 08:27 | Emergency (ER) | payer BC ==
[2022-01-07] MEDS ORDERED: Sodium Chloride 0.9% 1,000 ML IV ONE (08:48)
[2022-01-07 09:21] VITALS: PULSE 97
[2022-01-07 09:42] LABS: POTASSIUM,K 3.8 mmol/L (3.5-5.1)
[2022-01-07 10:12] VITALS: BP 115/76
== END 2022-01-07 10:16 | disposition home or self-care (01) ==
LOC: MW.ED 08:27
DX: R00.2 Palpitations (principal); Z79.899 Other long term (current) drug therapy
CPT/HCPCS: 36415; 80053; 83735; 84443; 84484; 84703; 85025; 93005; 96360; 99285; J7030

== ENCOUNTER 2022-05-06 10:25 | Day surgery (SDC) | payer BC ==
[~2022-05-06 10:25] MED LIST: Lactated Ringers 1,000 ML IV SCH; Midazolam 1 MG/ML 2 ML SDV ONE; Propofol 200 MG/20 ML SDV ONE; fentaNYL 100 MCG/2 ML SDV ONE
[2022-05-06 12:31] VITALS: BP 115/69; PULSE 67
== END 2022-05-06 13:00 | disposition home or self-care (01) ==
LOC: MW.SDS 10:25
PROVIDERS: ATTEND Surgery
DX: K31.819 Angiodysplasia of stomach and duodenum without bleeding (principal); K31.89 Other diseases of stomach and duodenum; K22.89 Other specified disease of esophagus; K21.9 Gastro-esophageal reflux disease without esophagitis; I10 Essential (primary) hypertension; F41.9 Anxiety disorder, unspecified; R56.9 Unspecified convulsions; Z98.890 Other specified postprocedural states; Z79.899 Other long term (current) drug therapy; Z87.891 Personal history of nicotine dependence
CPT/HCPCS: 43239; 81025; J2250; J2704; J3010; J7120; 00731